=== PATIENT | male | born 1995 | race Caucasian/White ===

== ENCOUNTER → 2017-10-30 | Outpatient (CLI) | payer BC ==
[2017-10-30 14:06] LABS: FREE T3 3.47 pg/mL (2.77-5.27); FREE T4 (FREE THYROXINE) 1.28 ng/dL (0.78-2.19)
[2017-10-30 14:20] LABS: THYROID STIMULATING HORMONE 8.08 uIU/mL (0.47-4.68)
== END ==
LOC: OD 12:46
PROVIDERS: ATTEND Surgery
DX: C73 Malignant neoplasm of thyroid gland (principal)
CPT/HCPCS: 36415; 84439; 84443; 84481

== ENCOUNTER → 2019-10-28 | Outpatient (CLI) | payer BC ==
[2019-10-28 16:27] LABS: FREE T4 (FREE THYROXINE) 1.46 ng/dL (0.78-2.19)
[2019-10-28 16:56] LABS: THYROID STIMULATING HORMONE < 0.01 uIU/mL (0.47-4.68)
== END ==
LOC: OD 14:40
PROVIDERS: ATTEND Internal Medicine Endocrinology, Diabetes & Metabolism
DX: E89.0 Postprocedural hypothyroidism (principal); C73 Malignant neoplasm of thyroid gland
CPT/HCPCS: 36415; 84439; 84443; 86800

== ENCOUNTER → 2019-12-14 | Outpatient (CLI) | payer BC ==
[2019-12-14 18:20] LABS: FREE T4 (FREE THYROXINE) 0.93 ng/dL (0.78-2.19)
[2019-12-14 18:34] LABS: THYROID STIMULATING HORMONE 45.3 uIU/mL (0.47-4.68)
== END ==
LOC: OD 16:49
PROVIDERS: ATTEND Internal Medicine Endocrinology, Diabetes & Metabolism
DX: C73 Malignant neoplasm of thyroid gland (principal); E89.0 Postprocedural hypothyroidism
CPT/HCPCS: 36415; 84439; 84443; 86800

== ENCOUNTER → 2020-03-06 | Outpatient (CLI) | payer BC ==
[2020-03-06 17:36] LABS: FREE T4 (FREE THYROXINE) 1.74 ng/dL (0.78-2.19)
[2020-03-06 17:50] LABS: THYROID STIMULATING HORMONE 0.04 uIU/mL (0.47-4.68)
== END ==
LOC: OD 15:22
PROVIDERS: ATTEND Internal Medicine Endocrinology, Diabetes & Metabolism
DX: C73 Malignant neoplasm of thyroid gland (principal); E89.0 Postprocedural hypothyroidism
CPT/HCPCS: 36415; 84439; 84443; 86800